=== PATIENT | male | born 1965 | race Caucasian/White ===

== ENCOUNTER 2021-04-01 00:21 | Emergency (ER) | payer SELFPAY | END 2021-04-01 02:05 | disposition home or self-care (01) | LOC: MADERS 00:21 | DX: J44.1 Chronic obstructive pulmonary disease with (acute) exacerbation (principal); F43.10 Post-traumatic stress disorder, unspecified; F41.9 Anxiety disorder, unspecified; J45.909 Unspecified asthma, uncomplicated; F17.210 Nicotine dependence, cigarettes, uncomplicated; I10 Essential (primary) hypertension; Z79.899 Other long term (current) drug therapy; Z87.19 Personal history of other diseases of the digestive system; Z85.828 Personal history of other malignant neoplasm of skin | CPT/HCPCS: 71045; 96372; J1040 ==

== ENCOUNTER 2023-03-30 12:26 | Emergency (ER) | payer MEDICARE, OTHER ==
[2023-03-30] MEDS ORDERED: predniSONE 20 MG TAB ONE (12:56)
[2023-03-30] MEDS ORDERED: Albuterol 200 PUFF (6.7GM INHALER) ONE (12:56)
[2023-03-30 13:12] LABS: #Basophils 0.1 thou/uL (0.0-0.2); #Eosinphils 0.1 thou/uL (0.0-0.7); #Lymphocytes 1.7 thou/uL (1.20-3.40); #Monocytes 0.5 thou/uL (0.11-0.59); #Neutrophils 2.6 thou/uL (1.40-6.50); %Eosinophils 2.8 % (0.0-10.0); %Monocytes 9.1 % (0.0-10.0); %Neutrophils 53.1 % (42.0-75.0); Hematocrit 37.8 % (42.0-52.0); Hemoglobin 12.1 g/dL (14.0-18.0); Mean Corpuscular HGB CONC 31.9 g/dL (32.0-36.0); Mean Corpuscular Hemoglobin 27.2 pg (27.0-31.0); Mean Corpuscular Volume 85.1 fl (78.0-98.0); Mean Platelet Volume 8.6 fL (7.4-10.4); Platelet Count 207 10x3/uL (130-400); RBC Distribution Width 16.7 % (11.5-14.5); Red Blood Cell (RBC) Count 4.45 mill/uL (4.70-6.10); White Blood Cell (WBC) Count 4.9 10x3/uL (4.8-10.8)
[2023-03-30 13:27] LABS: ALT (SGPT) 21 U/L (8-55); AST (SGOT) 16 U/L (5-34); Albumin 4.7 g/dL (3.5-5.0); Alkaline Phosphatase 89 U/L (40-110); Anion Gap 16 mmol/L (10-20); BUN (Urea Nitrogen) 8 mg/dL (8.4-25.7); Bilirubin, Total 0.5 mg/dL (0.2-1.2); Calc. Creatinine Clearance 0 mL/min (70-130); Calcium 9.6 mg/dL (7.8-10.44); Carbon Dioxide 24 mmol/L (22-29); Chloride 102 mmol/L (98-107); Estimated GFR 89; Globulin 2.8 g/dL (2.4-3.5); Glucose 167 mg/dL (70-105); Potassium 4.1 mmol/L (3.5-5.1); Protein, Total 7.5 g/dL (6.0-8.3); Sodium 138 mmol/L (136-145)
[2023-03-30 13:31] LABS: Troponin I Less than 0.010 ng/mL (< 0.028)
== END 2023-03-30 13:52 | disposition home or self-care (01) ==
LOC: MADERS 12:26
DX: J45.901 Unspecified asthma with (acute) exacerbation (principal); J44.9 Chronic obstructive pulmonary disease, unspecified; F17.210 Nicotine dependence, cigarettes, uncomplicated
CPT/HCPCS: 36415; 71046; 80053; 84484; 85025; 93005; 94760; J7512

== ENCOUNTER 2024-07-08 02:46 | Emergency (ER) | payer MEDICAID, MEDICARE, OTHER ==
[2024-07-08] MEDS ORDERED: Dexamethasone 10 MG/ML VIAL ONE (03:11)
[2024-07-08] MEDS ORDERED: hydrOXYzine 25 MG TAB ONE (03:11)
[2024-07-08] MEDS ORDERED: Aspirin Chewable 81 MG TAB ONE (03:12)
[2024-07-08 03:32] LABS: #Basophils 0.1 thou/uL (0.0-0.2); #Eosinophils 0.2 thou/uL (0.0-0.7); #Lymphocytes 1.9 thou/uL (1.20-3.40); #Monocytes 0.7 thou/uL (0.11-0.59); #Neutrophils 3.7 thou/uL (1.40-6.50); %Basophils 1.3 % (0.0-1.0); %Eosinophils 3.2 % (0.0-10.0); %Lymphocytes 28.9 % (21.0-51.0); %Monocytes 10.1 % (0.0-10.0); %Neutrophils 56.6 % (42.0-75.0); Hematocrit 37.8 % (42.0-52.0); Hemoglobin 12.2 g/dL (14.0-18.0); Mean Corpuscular HGB CONC 32.4 g/dL (32.0-36.0); Mean Corpuscular Hemoglobin 28.4 pg (27.0-31.0); Mean Corpuscular Volume 87.7 fl (78.0-98.0); Mean Platelet Volume 9.7 fL (7.4-10.4); Platelet Count 175 10x3/uL (130-400); RBC Distribution Width 15.2 % (11.5-14.5); Red Blood Cell (RBC) Count 4.31 mill/uL (4.70-6.10); White Blood Cell (WBC) Count 6.6 10x3/uL (4.8-10.8)
[2024-07-08 03:47] LABS: Anion Gap 13 mmol/L (10-20); BUN (Urea Nitrogen) 6 mg/dL (8.4-25.7); Calc. Creatinine Clearance 0 mL/min (70-130); Calcium 8.5 mg/dL (7.8-10.44); Carbon Dioxide 26 mmol/L (22-29); Chloride 105 mmol/L (98-107); Estimated GFR 79; Glucose 257 mg/dL (70-105); Potassium 3.6 mmol/L (3.5-5.1); Sodium 140 mmol/L (136-145)
[2024-07-08 03:50] LABS: Troponin I Less than 0.010 ng/mL (< 0.028)
== END 2024-07-08 03:58 | disposition home or self-care (01) ==
LOC: MADERS 02:46
DX: F41.1 Generalized anxiety disorder (principal); J44.9 Chronic obstructive pulmonary disease, unspecified; F17.210 Nicotine dependence, cigarettes, uncomplicated
CPT/HCPCS: 71046; 80048; 83880; 84484; 85025; 93005; J1100; 96374